=== PATIENT | male | born 1935 | race Caucasian/White ===

== ENCOUNTER 2021-06-03 18:38 | Inpatient (IN) | payer MEDICARE, OTHER ==
[2021-06-03] MEDS ORDERED: Acetaminophen/Codeine 30-300mg Tablet PO PRN (20:41)
[2021-06-03] MEDS ORDERED: Ondansetron ODT 4 MG TAB SL PRN (20:44)
[2021-06-03] MEDS ORDERED: Calcium Carbonate 500 MG ChewTAB PO PRN (20:44)
[2021-06-03] MEDS ORDERED: Guaifenesin DM 100-10/5 ML UDCUP PO PRN (20:44)
[2021-06-03] MEDS ORDERED: Senokot S 8.6-50 MG TAB PO PRN (20:44)
[2021-06-03] MEDS ORDERED: Artificial Tear Sol 15 ML BOT EA EYE PRN (20:44)
[2021-06-03] MEDS ORDERED: Cepastat Lozenges 1 LOZ PO PRN (20:44)
[2021-06-03] MEDS ORDERED: Acetaminophen 650 MG Suppository PR PRN (20:44)
[2021-06-03] MEDS ORDERED: Ondansetron PF 4 MG/2 ML Vial IVP PRN (20:44)
[2021-06-03] MEDS ORDERED: Bisacodyl 5 MG TAB PO PRN (20:44)
[2021-06-03] MEDS ORDERED: Loperamide HCl 2 MG CAP PO PRN ×2 (20:44)
[2021-06-03] MEDS ORDERED: Bisacodyl 10 MG SUPP PR PRN (20:44)
[2021-06-03] MEDS ORDERED: Eucerin (Mineral Oil/Petrolatum,White) 30 gm Jar TOP PRN (20:44)
[2021-06-03] MEDS ORDERED: Acetaminophen 325 MG TAB PO PRN (20:44)
[2021-06-03] MEDS: Finasteride 5 MG TAB PO SCH (21:55)
[2021-06-03] MEDS: Pramipexole Di-HCl 0.25 MG TAB PO SCH (21:55)
[2021-06-03] MEDS: Famotidine 20 MG TAB PO SCH (21:55)
[2021-06-03] MEDS: Atorvastatin Calcium 40 MG TAB PO SCH (21:55)
[2021-06-03] MEDS: Polyethylene Glycol 3350 17 GM Packet PO SCH (21:55)
[2021-06-03] MEDS: Piperacillin/Tazobactam 3.375 GM in Sodium Chloride 0.9% 100 ML IVPB SCH (21:56)
[2021-06-03] MEDS ORDERED: Piperacillin/Tazobactam 3.375 GM VIAL IVPB SCH (22:00)
[2021-06-04] MEDS: Piperacillin/Tazobactam 3.375 GM in Sodium Chloride 0.9% 100 ML IVPB SCH ×3 (05:18→21:57)
[2021-06-04 06:21] LABS: SARS-CoV-2 NAA Rapid Test Not Detected (NotDetected)
[2021-06-04] MEDS: Aspirin 81 mg Enteric Coated Tablet PO SCH (09:21)
[2021-06-04] MEDS: Carbidopa/Levodopa CR 50-200 mg Tablet PO SCH ×2 (09:21→14:28)
[2021-06-04] MEDS: Ferrous Sulfate 325 MG TAB PO SCH (09:22)
[2021-06-04] MEDS: CYANOCOBALAMIN 50 MCG PO SCH (09:22)
[2021-06-04] MEDS: [UNRECOGNIZED DRUG - OTHER] PO SCH (09:22)
[2021-06-04] MEDS: Famotidine 20 MG TAB PO SCH ×2 (09:22→21:57)
[2021-06-04] MEDS: Clopidogrel Bisulfate 75 MG TAB PO SCH (09:22)
[2021-06-04] MEDS: Vancomycin HCl 750 MG in Sodium Chloride 0.9% 250 ML 250 ML IVPB SCH (09:23)
[2021-06-04] MEDS: Vancomycin HCl 500 MG in Sodium Chloride 0.9% 100 ML IVPB SCH (09:23)
[2021-06-04] MEDS: Saccharomyces boulardii 250 MG CAP PO SCH (09:24)
[2021-06-04] MEDS: Pramipexole Di-HCl 0.25 MG TAB PO SCH ×2 (09:25→21:57)
[2021-06-04] MEDS: Polyethylene Glycol 3350 17 GM Packet PO SCH ×2 (09:29→21:59)
[2021-06-04] MEDS ORDERED: Sodium Chloride 0.9% 10 ML ONE (20:32)
[2021-06-04] MEDS: Atorvastatin Calcium 40 MG TAB PO SCH (21:57)
[2021-06-04] MEDS: Finasteride 5 MG TAB PO SCH (21:57)
[2021-06-05] MEDS ORDERED: Sodium Chloride 0.9% 10 ML ONE (05:23)
[2021-06-05] MEDS: Piperacillin/Tazobactam 3.375 GM in Sodium Chloride 0.9% 100 ML IVPB SCH ×3 (05:53→21:29)
[2021-06-05 08:11] LABS: Anion Gap 12 mmol/L (10-20); BUN (Urea Nitrogen) 10 mg/dL (8.4-25.7); Calc. Creatinine Clearance 84 mL/min (70-130); Carbon Dioxide 24 mmol/L (23-31); Chloride 104 mmol/L (98-107); Glucose 84 mg/dL (83-110); Potassium 3.7 mmol/L (3.5-5.1); Sodium 136 mmol/L (136-145)
[2021-06-05 08:28] LABS: #Basophils 0.1 thou/uL (0.0-0.2); #Eosinphils 0.2 thou/uL (0.0-0.7); #Neutrophils 9.5 thou/uL (1.40-6.50); %Basophils 0.7 % (0.0-1.0); %Eosinophils 1.5 % (0.0-10.0); %Lymphocytes 8.2 % (21.0-51.0); %Monocytes 8.4 % (0.0-10.0); %Neutrophils 81.2 % (42.0-75.0); Hemoglobin 8.6 g/dL (14.0-18.0); Mean Corpuscular HGB CONC 29.7 g/dL (32.0-36.0); Mean Corpuscular Hemoglobin 28.1 pg (27.0-31.0); Mean Corpuscular Volume 94.6 fL (78.0-98.0); Mean Platelet Volume 7.2 fL (7.4-10.4); Platelet Count 678 thou/uL (130-400); RBC Distribution Width 14.8 % (11.5-14.5); Red Blood Cell (RBC) Count 3.05 mill/uL (4.70-6.10); White Blood Cell (WBC) Count 11.7 thou/uL (4.8-10.8)
[2021-06-05] MEDS: Carbidopa/Levodopa CR 50-200 mg Tablet PO SCH ×2 (08:48→14:31)
[2021-06-05] MEDS: Pramipexole Di-HCl 0.25 MG TAB PO SCH ×2 (08:49→21:15)
[2021-06-05] MEDS: [UNRECOGNIZED DRUG - OTHER] PO SCH (08:49)
[2021-06-05] MEDS: Famotidine 20 MG TAB PO SCH ×2 (08:49→21:15)
[2021-06-05] MEDS: CYANOCOBALAMIN 50 MCG PO SCH (08:49)
[2021-06-05] MEDS: Saccharomyces boulardii 250 MG CAP PO SCH (08:49)
[2021-06-05] MEDS: Clopidogrel Bisulfate 75 MG TAB PO SCH (08:49)
[2021-06-05] MEDS: Aspirin 81 mg Enteric Coated Tablet PO SCH (08:49)
[2021-06-05] MEDS: Polyethylene Glycol 3350 17 GM Packet PO SCH ×2 (08:49→22:52)
[2021-06-05] MEDS: Vancomycin HCl 750 MG in Sodium Chloride 0.9% 250 ML 250 ML IVPB SCH (10:40)
[2021-06-05] MEDS: Vancomycin HCl 500 MG in Sodium Chloride 0.9% 100 ML IVPB SCH (10:40)
[2021-06-05] MEDS: Finasteride 5 MG TAB PO SCH (21:15)
[2021-06-05] MEDS: Atorvastatin Calcium 40 MG TAB PO SCH (21:15)
[2021-06-06] MEDS: Piperacillin/Tazobactam 3.375 GM in Sodium Chloride 0.9% 100 ML IVPB SCH ×3 (06:07→21:06)
[2021-06-06] MEDS: Vancomycin HCl 500 MG in Sodium Chloride 0.9% 100 ML IVPB SCH (09:48)
[2021-06-06] MEDS: Pramipexole Di-HCl 0.25 MG TAB PO SCH ×2 (09:49→20:18)
[2021-06-06] MEDS: Saccharomyces boulardii 250 MG CAP PO SCH (09:49)
[2021-06-06] MEDS: Vancomycin HCl 750 MG in Sodium Chloride 0.9% 250 ML 250 ML IVPB SCH (09:49)
[2021-06-06] MEDS: Famotidine 20 MG TAB PO SCH ×2 (09:50→20:19)
[2021-06-06] MEDS: Clopidogrel Bisulfate 75 MG TAB PO SCH (09:50)
[2021-06-06] MEDS: Ferrous Sulfate 325 MG TAB PO SCH (09:50)
[2021-06-06] MEDS: CYANOCOBALAMIN 50 MCG PO SCH (09:50)
[2021-06-06] MEDS: Polyethylene Glycol 3350 17 GM Packet PO SCH ×2 (09:50→20:18)
[2021-06-06] MEDS: [UNRECOGNIZED DRUG - OTHER] PO SCH (09:50)
[2021-06-06] MEDS: Aspirin 81 mg Enteric Coated Tablet PO SCH (09:50)
[2021-06-06] MEDS: Carbidopa/Levodopa CR 50-200 mg Tablet PO SCH ×2 (09:50→13:15)
[2021-06-06] MEDS: Atorvastatin Calcium 40 MG TAB PO SCH (20:19)
[2021-06-06] MEDS: Finasteride 5 MG TAB PO SCH (20:19)
[2021-06-07] MEDS ORDERED: Sodium Chloride 0.9% 10 ML ONE ×2 (05:48→10:15)
[2021-06-07] MEDS: Piperacillin/Tazobactam 3.375 GM in Sodium Chloride 0.9% 100 ML IVPB SCH ×3 (05:50→21:17)
[2021-06-07] MEDS ORDERED: Sodium Chloride 0.9% 250 ML 250 ML ONE (08:55)
[2021-06-07] MEDS: Pramipexole Di-HCl 0.25 MG TAB PO SCH ×2 (09:15→21:18)
[2021-06-07] MEDS: Saccharomyces boulardii 250 MG CAP PO SCH (09:15)
[2021-06-07] MEDS: Aspirin 81 mg Enteric Coated Tablet PO SCH (09:16)
[2021-06-07] MEDS: Vancomycin HCl 500 MG in Sodium Chloride 0.9% 100 ML IVPB SCH (09:16)
[2021-06-07] MEDS: Clopidogrel Bisulfate 75 MG TAB PO SCH (09:16)
[2021-06-07] MEDS: Carbidopa/Levodopa CR 50-200 mg Tablet PO SCH ×2 (09:16→13:35)
[2021-06-07] MEDS: Famotidine 20 MG TAB PO SCH ×2 (09:16→21:19)
[2021-06-07] MEDS: Vancomycin HCl 750 MG in Sodium Chloride 0.9% 250 ML 250 ML IVPB SCH (09:17)
[2021-06-07] MEDS: Polyethylene Glycol 3350 17 GM Packet PO SCH ×2 (09:19→21:19)
[2021-06-07] MEDS: CYANOCOBALAMIN 50 MCG PO SCH (09:20)
[2021-06-07] MEDS: [UNRECOGNIZED DRUG - OTHER] PO SCH (09:20)
[2021-06-07] MEDS ORDERED: Vancomycin HCl 500 MG in Sodium Chloride 0.9% 100 ML IVPB SCH (11:00)
[2021-06-07] MEDS ORDERED: Sodium Chloride 0.9% 20 ML ONE (20:31)
[2021-06-07] MEDS: Finasteride 5 MG TAB PO SCH (21:18)
[2021-06-07] MEDS: Atorvastatin Calcium 40 MG TAB PO SCH (21:18)
[2021-06-08] MEDS ORDERED: Sodium Chloride 0.9% 10 ML ONE ×2 (05:05→05:06)
[2021-06-08] MEDS: Piperacillin/Tazobactam 3.375 GM in Sodium Chloride 0.9% 100 ML IVPB SCH ×3 (05:11→20:42)
[2021-06-08 05:39] LABS: #Basophils 0.1 thou/uL (0.0-0.2); #Eosinphils 0.2 thou/uL (0.0-0.7); #Lymphocytes 1.1 thou/uL (1.20-3.40); #Monocytes 0.9 thou/uL (0.11-0.59); #Neutrophils 7.6 thou/uL (1.40-6.50); %Basophils 1.2 % (0.0-1.0); %Eosinophils 1.8 % (0.0-10.0); %Lymphocytes 10.5 % (21.0-51.0); %Monocytes 9.5 % (0.0-10.0); Hemoglobin 7.8 g/dL (14.0-18.0); Mean Corpuscular HGB CONC 29.9 g/dL (32.0-36.0); Mean Corpuscular Hemoglobin 28.2 pg (27.0-31.0); Mean Corpuscular Volume 94.4 fL (78.0-98.0); Platelet Count 654 thou/uL (130-400); RBC Distribution Width 15.2 % (11.5-14.5); Red Blood Cell (RBC) Count 2.77 mill/uL (4.70-6.10); White Blood Cell (WBC) Count 9.9 thou/uL (4.8-10.8)
[2021-06-08 05:50] LABS: Anion Gap 11 mmol/L (10-20); BUN (Urea Nitrogen) 8 mg/dL (8.4-25.7); Calc. Creatinine Clearance 94 mL/min (70-130); Calcium 8.2 mg/dL (7.8-10.44); Carbon Dioxide 26 mmol/L (23-31); Chloride 104 mmol/L (98-107); Glucose 98 mg/dL (83-110); Potassium 4.1 mmol/L (3.5-5.1); Sodium 137 mmol/L (136-145)
[2021-06-08] MEDS ORDERED: Sodium Chloride 0.9% 250 ML 250 ML ONE ×2 (08:32→08:33)
[2021-06-08] MEDS ORDERED: Sodium Chloride 0.9% 250 ML 0 ML ONE (08:32)
[2021-06-08] MEDS: Vancomycin HCl 1 GM in Sodium Chloride 0.9% 250 ML 250 ML IVPB SCH (08:38)
[2021-06-08] MEDS: Vancomycin HCl 750 MG in Sodium Chloride 0.9% 250 ML 250 ML IVPB SCH (08:38)
[2021-06-08] MEDS: Aspirin 81 mg Enteric Coated Tablet PO SCH (08:38)
[2021-06-08] MEDS: Carbidopa/Levodopa CR 50-200 mg Tablet PO SCH ×2 (08:39→13:56)
[2021-06-08] MEDS: Polyethylene Glycol 3350 17 GM Packet PO SCH ×2 (08:39→20:43)
[2021-06-08] MEDS: Famotidine 20 MG TAB PO SCH ×2 (08:39→20:42)
[2021-06-08] MEDS: Ferrous Sulfate 325 MG TAB PO SCH (08:39)
[2021-06-08] MEDS: Pramipexole Di-HCl 0.25 MG TAB PO SCH ×2 (08:39→20:42)
[2021-06-08] MEDS: Clopidogrel Bisulfate 75 MG TAB PO SCH (08:39)
[2021-06-08] MEDS: Saccharomyces boulardii 250 MG CAP PO SCH (08:39)
[2021-06-08] MEDS: CYANOCOBALAMIN 50 MCG PO SCH (08:40)
[2021-06-08] MEDS: [UNRECOGNIZED DRUG - OTHER] PO SCH (08:40)
[2021-06-08] MEDS ORDERED: Sodium Chloride 0.9% 20 ML ONE (20:15)
[2021-06-08] MEDS: Finasteride 5 MG TAB PO SCH (20:41)
[2021-06-08] MEDS: Atorvastatin Calcium 40 MG TAB PO SCH (20:42)
[2021-06-09] MEDS ORDERED: Sodium Chloride 0.9% 20 ML ONE (05:20)
[2021-06-09] MEDS: Piperacillin/Tazobactam 3.375 GM in Sodium Chloride 0.9% 100 ML IVPB SCH ×2 (05:35→15:52)
[2021-06-09 09:08] LABS: Vancomycin, Trough 19.3 ug/mL
[2021-06-09] MEDS: Saccharomyces boulardii 250 MG CAP PO SCH (09:55)
[2021-06-09] MEDS: Polyethylene Glycol 3350 17 GM Packet PO SCH ×2 (09:55→20:53)
[2021-06-09] MEDS: Aspirin 81 mg Enteric Coated Tablet PO SCH (09:55)
[2021-06-09] MEDS: Pramipexole Di-HCl 0.25 MG TAB PO SCH ×2 (09:55→20:51)
[2021-06-09] MEDS: Famotidine 20 MG TAB PO SCH ×2 (09:56→20:52)
[2021-06-09] MEDS: Clopidogrel Bisulfate 75 MG TAB PO SCH (09:56)
[2021-06-09] MEDS ORDERED: Vancomycin HCl 750 MG VIAL ONE (10:03)
[2021-06-09] MEDS ORDERED: Sodium Chloride 0.9% 250 ML 500 ML ONE (10:03)
[2021-06-09] MEDS: Vancomycin HCl 1 GM in Sodium Chloride 0.9% 250 ML 250 ML IVPB SCH (10:04)
[2021-06-09] MEDS: Vancomycin HCl 750 MG in Sodium Chloride 0.9% 250 ML 250 ML IVPB SCH (10:05)
[2021-06-09] MEDS: Carbidopa/Levodopa CR 50-200 mg Tablet PO SCH ×2 (10:07→15:52)
[2021-06-09] MEDS: [UNRECOGNIZED DRUG - OTHER] PO SCH (10:30)
[2021-06-09] MEDS: CYANOCOBALAMIN 50 MCG PO SCH (10:30)
[2021-06-09] MEDS ORDERED: metroNIDAZOLE 500 MG TAB PO SCH (16:15)
[2021-06-09] MEDS: Carbidopa/Levodopa 25-100 mg Tablet PO SCH ×2 (16:57→20:52)
[2021-06-09] MEDS ORDERED: Carbidopa/Levodopa 25-100 mg Tablet PO SCH (17:00)
[2021-06-09] MEDS: Atorvastatin Calcium 40 MG TAB PO SCH (20:51)
[2021-06-09] MEDS: Finasteride 5 MG TAB PO SCH (20:52)
[2021-06-09] MEDS: metroNIDAZOLE 500 MG TAB PO SCH (20:52)
[2021-06-09] MEDS: Pantoprazole 40 MG GRANULES PACKET PO SCH (20:52)
[2021-06-10] MEDS: Pramipexole Di-HCl 0.25 MG TAB PO SCH ×2 (10:14→20:04)
[2021-06-10] MEDS: Carbidopa/Levodopa 25-100 mg Tablet PO SCH ×4 (10:14→20:04)
[2021-06-10] MEDS: Saccharomyces boulardii 250 MG CAP PO SCH (10:14)
[2021-06-10] MEDS: metroNIDAZOLE 500 MG TAB PO SCH ×3 (10:15→20:05)
[2021-06-10] MEDS: Aspirin Chewable 81 MG TAB PO SCH (10:15)
[2021-06-10] MEDS: Famotidine 20 MG TAB PO SCH ×2 (10:15→20:05)
[2021-06-10] MEDS: Ferrous Sulfate 325 MG TAB PO SCH (10:15)
[2021-06-10] MEDS: Clopidogrel Bisulfate 75 MG TAB PO SCH (10:15)
[2021-06-10] MEDS: Acetaminophen 325 MG TAB PO PRN (10:16)
[2021-06-10] MEDS: Pantoprazole 40 MG GRANULES PACKET PO SCH ×2 (10:17→20:05)
[2021-06-10] MEDS: [UNRECOGNIZED DRUG - OTHER] PO SCH (10:17)
[2021-06-10] MEDS: Polyethylene Glycol 3350 17 GM Packet PO SCH ×2 (10:18→20:05)
[2021-06-10] MEDS: CYANOCOBALAMIN 50 MCG PO SCH (10:18)
[2021-06-10] MEDS: Finasteride 5 MG TAB PO SCH (20:05)
[2021-06-10] MEDS: Atorvastatin Calcium 40 MG TAB PO SCH (20:05)
[2021-06-11] MEDS: Pramipexole Di-HCl 0.25 MG TAB PO SCH ×2 (08:34→21:15)
[2021-06-11] MEDS: Aspirin Chewable 81 MG TAB PO SCH (08:34)
[2021-06-11] MEDS: [UNRECOGNIZED DRUG - OTHER] PO SCH (08:37)
[2021-06-11] MEDS: Pantoprazole 40 MG GRANULES PACKET PO SCH ×2 (08:37→21:15)
[2021-06-11] MEDS: Clopidogrel Bisulfate 75 MG TAB PO SCH (08:37)
[2021-06-11] MEDS: Furosemide 20 MG TAB PO SCH ×2 (08:37→14:33)
[2021-06-11] MEDS: CYANOCOBALAMIN 50 MCG PO SCH (08:38)
[2021-06-11] MEDS: Carbidopa/Levodopa 25-100 mg Tablet PO SCH ×4 (08:38→21:15)
[2021-06-11] MEDS: Saccharomyces boulardii 250 MG CAP PO SCH (08:38)
[2021-06-11] MEDS: Polyethylene Glycol 3350 17 GM Packet PO SCH ×2 (08:38→21:15)
[2021-06-11] MEDS: metroNIDAZOLE 500 MG TAB PO SCH ×3 (08:38→21:15)
[2021-06-11] MEDS: Famotidine 20 MG TAB PO SCH ×2 (08:38→21:15)
[2021-06-11] MEDS: Acetaminophen 325 MG TAB PO PRN (08:40)
[2021-06-11] MEDS: Atorvastatin Calcium 40 MG TAB PO SCH (21:15)
[2021-06-11] MEDS: Finasteride 5 MG TAB PO SCH (21:15)
[2021-06-11 23:30] LABS: SARS-CoV-2 PCR by NAA Not Detected (NotDetected)
[2021-06-12] MEDS: Pantoprazole 40 MG GRANULES PACKET PO SCH ×2 (08:39→21:32)
[2021-06-12] MEDS: Clopidogrel Bisulfate 75 MG TAB PO SCH (08:39)
[2021-06-12] MEDS: Pramipexole Di-HCl 0.25 MG TAB PO SCH ×2 (08:39→21:26)
[2021-06-12] MEDS: Carbidopa/Levodopa 25-100 mg Tablet PO SCH ×4 (08:40→21:28)
[2021-06-12] MEDS: Aspirin Chewable 81 MG TAB PO SCH (08:40)
[2021-06-12] MEDS: Famotidine 20 MG TAB PO SCH ×2 (08:40→21:26)
[2021-06-12] MEDS: Ferrous Sulfate 325 MG TAB PO SCH (08:40)
[2021-06-12] MEDS: Furosemide 20 MG TAB PO SCH ×2 (08:40→13:40)
[2021-06-12] MEDS: metroNIDAZOLE 500 MG TAB PO SCH ×3 (08:40→21:26)
[2021-06-12] MEDS: CYANOCOBALAMIN 50 MCG PO SCH (08:41)
[2021-06-12] MEDS: [UNRECOGNIZED DRUG - OTHER] PO SCH (08:41)
[2021-06-12] MEDS: Polyethylene Glycol 3350 17 GM Packet PO SCH ×2 (08:42→21:25)
[2021-06-12] MEDS: Saccharomyces boulardii 250 MG CAP PO SCH (09:30)
[2021-06-12] MEDS: Atorvastatin Calcium 40 MG TAB PO SCH (21:28)
[2021-06-12] MEDS: Finasteride 5 MG TAB PO SCH (21:28)
[2021-06-12] MEDS: Acetaminophen 325 MG TAB PO PRN (21:28)
[2021-06-13] MEDS: Saccharomyces boulardii 250 MG CAP PO SCH (08:51)
[2021-06-13] MEDS: Polyethylene Glycol 3350 17 GM Packet PO SCH ×2 (08:51→21:17)
[2021-06-13] MEDS: Carbidopa/Levodopa 25-100 mg Tablet PO SCH ×4 (08:51→21:27)
[2021-06-13] MEDS: Clopidogrel Bisulfate 75 MG TAB PO SCH (08:51)
[2021-06-13] MEDS: Pramipexole Di-HCl 0.25 MG TAB PO SCH ×2 (08:51→21:18)
[2021-06-13] MEDS: Famotidine 20 MG TAB PO SCH ×2 (08:51→21:25)
[2021-06-13] MEDS: metroNIDAZOLE 500 MG TAB PO SCH ×3 (08:51→21:18)
[2021-06-13] MEDS: Pantoprazole 40 MG GRANULES PACKET PO SCH ×2 (08:51→21:18)
[2021-06-13] MEDS: [UNRECOGNIZED DRUG - OTHER] PO SCH (08:52)
[2021-06-13] MEDS: Aspirin Chewable 81 MG TAB PO SCH (08:52)
[2021-06-13] MEDS: Furosemide 20 MG TAB PO SCH ×2 (08:52→14:39)
[2021-06-13] MEDS: CYANOCOBALAMIN 50 MCG PO SCH (08:53)
[2021-06-13] MEDS: Finasteride 5 MG TAB PO SCH (21:18)
[2021-06-13] MEDS: Atorvastatin Calcium 40 MG TAB PO SCH (21:18)
[2021-06-14] MEDS: Acetaminophen 325 MG TAB PO PRN ×4 (00:15→21:11)
[2021-06-14] MEDS: Carbidopa/Levodopa 25-100 mg Tablet PO SCH ×4 (09:10→21:10)
[2021-06-14] MEDS: Pantoprazole 40 MG GRANULES PACKET PO SCH ×2 (09:11→21:10)
[2021-06-14] MEDS: Saccharomyces boulardii 250 MG CAP PO SCH (09:11)
[2021-06-14] MEDS: Ferrous Sulfate 325 MG TAB PO SCH (09:13)
[2021-06-14] MEDS: Furosemide 20 MG TAB PO SCH ×2 (09:13→14:02)
[2021-06-14] MEDS: Aspirin Chewable 81 MG TAB PO SCH (09:14)
[2021-06-14] MEDS: [UNRECOGNIZED DRUG - OTHER] PO SCH (09:14)
[2021-06-14] MEDS: Famotidine 20 MG TAB PO SCH ×2 (09:14→21:10)
[2021-06-14] MEDS: metroNIDAZOLE 500 MG TAB PO SCH ×3 (09:15→21:13)
[2021-06-14] MEDS: Clopidogrel Bisulfate 75 MG TAB PO SCH (09:15)
[2021-06-14] MEDS: Pramipexole Di-HCl 0.25 MG TAB PO SCH ×2 (09:16→21:12)
[2021-06-14] MEDS: Polyethylene Glycol 3350 17 GM Packet PO SCH ×2 (09:17→21:13)
[2021-06-14] MEDS: CYANOCOBALAMIN 50 MCG PO SCH (09:19)
[2021-06-14] MEDS: Finasteride 5 MG TAB PO SCH (21:12)
[2021-06-14] MEDS: Atorvastatin Calcium 40 MG TAB PO SCH (21:13)
[2021-06-15] MEDS: Pramipexole Di-HCl 0.25 MG TAB PO SCH ×2 (09:50→21:35)
[2021-06-15] MEDS: Clopidogrel Bisulfate 75 MG TAB PO SCH (09:50)
[2021-06-15] MEDS: Saccharomyces boulardii 250 MG CAP PO SCH (09:50)
[2021-06-15] MEDS: Furosemide 20 MG TAB PO SCH ×2 (09:50→16:08)
[2021-06-15] MEDS: metroNIDAZOLE 500 MG TAB PO SCH ×3 (09:50→21:35)
[2021-06-15] MEDS: Polyethylene Glycol 3350 17 GM Packet PO SCH ×2 (09:50→22:16)
[2021-06-15] MEDS: Pantoprazole 40 MG GRANULES PACKET PO SCH ×2 (09:50→21:36)
[2021-06-15] MEDS: Carbidopa/Levodopa 25-100 mg Tablet PO SCH ×4 (09:50→21:35)
[2021-06-15] MEDS: Aspirin Chewable 81 MG TAB PO SCH (09:50)
[2021-06-15] MEDS: [UNRECOGNIZED DRUG - OTHER] PO SCH (09:51)
[2021-06-15] MEDS: CYANOCOBALAMIN 50 MCG PO SCH (09:51)
[2021-06-15] MEDS: Famotidine 20 MG TAB PO SCH ×2 (10:49→21:36)
[2021-06-15] MEDS: Furosemide 40 MG TAB PO SCH (15:00)
[2021-06-15] MEDS: Atorvastatin Calcium 40 MG TAB PO SCH (21:35)
[2021-06-15] MEDS: Finasteride 5 MG TAB PO SCH (21:35)
[2021-06-15] MEDS: Acetaminophen 325 MG TAB PO PRN (22:16)
[2021-06-16] MEDS: Acetaminophen 325 MG TAB PO PRN ×3 (03:24→21:31)
[2021-06-16] MEDS: Polyethylene Glycol 3350 17 GM Packet PO SCH ×2 (08:19→21:29)
[2021-06-16] MEDS: Pantoprazole 40 MG GRANULES PACKET PO SCH ×2 (08:19→21:31)
[2021-06-16] MEDS: Pramipexole Di-HCl 0.25 MG TAB PO SCH ×2 (08:20→21:30)
[2021-06-16] MEDS: Aspirin Chewable 81 MG TAB PO SCH (08:20)
[2021-06-16] MEDS: Furosemide 40 MG TAB PO SCH ×2 (08:20→14:43)
[2021-06-16] MEDS: metroNIDAZOLE 500 MG TAB PO SCH ×3 (08:20→21:31)
[2021-06-16] MEDS: Ferrous Sulfate 325 MG TAB PO SCH (08:21)
[2021-06-16] MEDS: Carbidopa/Levodopa 25-100 mg Tablet PO SCH ×4 (08:21→21:30)
[2021-06-16] MEDS: Famotidine 20 MG TAB PO SCH ×2 (08:22→21:31)
[2021-06-16] MEDS: [UNRECOGNIZED DRUG - OTHER] PO SCH (08:22)
[2021-06-16] MEDS: CYANOCOBALAMIN 50 MCG PO SCH (08:22)
[2021-06-16] MEDS: Clopidogrel Bisulfate 75 MG TAB PO SCH (08:22)
[2021-06-16] MEDS: Saccharomyces boulardii 250 MG CAP PO SCH (08:22)
[2021-06-16] MEDS: Finasteride 5 MG TAB PO SCH (21:30)
[2021-06-16] MEDS: Atorvastatin Calcium 40 MG TAB PO SCH (21:30)
[2021-06-16] MEDS: Escitalopram Oxalate 10 mg Tablet PO SCH (21:31)
[2021-06-16] MEDS ORDERED: Famotidine 20 MG TAB ONE (22:01)
[2021-06-17 06:31] LABS: #Basophils 0.1 thou/uL (0.0-0.2); #Eosinphils 0.2 thou/uL (0.0-0.7); #Lymphocytes 1.2 thou/uL (1.20-3.40); #Neutrophils 5.2 thou/uL (1.40-6.50); %Basophils 0.8 % (0.0-1.0); %Eosinophils 2.7 % (0.0-10.0); %Lymphocytes 15.9 % (21.0-51.0); %Monocytes 12.8 % (0.0-10.0); %Neutrophils 67.8 % (42.0-75.0); Hemoglobin 8.5 g/dL (14.0-18.0); Mean Corpuscular HGB CONC 29.8 g/dL (32.0-36.0); Mean Platelet Volume 8.3 fL (7.4-10.4); Platelet Count 308 thou/uL (130-400); RBC Distribution Width 15.4 % (11.5-14.5); Red Blood Cell (RBC) Count 3.02 mill/uL (4.70-6.10); White Blood Cell (WBC) Count 7.6 thou/uL (4.8-10.8)
[2021-06-17 06:47] LABS: Anion Gap 12 mmol/L (10-20); BUN (Urea Nitrogen) 14 mg/dL (8.4-25.7); Calc. Creatinine Clearance 81 mL/min (70-130); Calcium 8.6 mg/dL (7.8-10.44); Carbon Dioxide 32 mmol/L (23-31); Chloride 92 mmol/L (98-107); Glucose 100 mg/dL (83-110); Potassium 3.6 mmol/L (3.5-5.1); Sodium 132 mmol/L (136-145)
[2021-06-17] MEDS: metroNIDAZOLE 500 MG TAB PO SCH ×3 (10:15→21:09)
[2021-06-17] MEDS: Aspirin Chewable 81 MG TAB PO SCH (10:16)
[2021-06-17] MEDS: Pramipexole Di-HCl 0.25 MG TAB PO SCH ×2 (10:17→21:09)
[2021-06-17] MEDS: Furosemide 40 MG TAB PO SCH ×2 (11:18→14:31)
[2021-06-17] MEDS: Saccharomyces boulardii 250 MG CAP PO SCH (11:19)
[2021-06-17] MEDS: [UNRECOGNIZED DRUG - OTHER] PO SCH (11:19)
[2021-06-17] MEDS: CYANOCOBALAMIN 50 MCG PO SCH (11:19)
[2021-06-17] MEDS: Clopidogrel Bisulfate 75 MG TAB PO SCH (11:25)
[2021-06-17] MEDS: Carbidopa/Levodopa 25-100 mg Tablet PO SCH ×4 (11:26→21:13)
[2021-06-17] MEDS: Pantoprazole 40 MG GRANULES PACKET PO SCH ×2 (11:27→21:14)
[2021-06-17] MEDS: Polyethylene Glycol 3350 17 GM Packet PO SCH ×2 (11:27→21:08)
[2021-06-17] MEDS: Famotidine 20 MG TAB PO SCH ×2 (11:28→21:10)
[2021-06-17] MEDS: Finasteride 5 MG TAB PO SCH (21:09)
[2021-06-17] MEDS: Escitalopram Oxalate 10 mg Tablet PO SCH (21:13)
[2021-06-17] MEDS: Atorvastatin Calcium 40 MG TAB PO SCH (21:14)
[2021-06-18] MEDS: Acetaminophen 325 MG TAB PO PRN ×3 (07:49→18:12)
[2021-06-18] MEDS: Pramipexole Di-HCl 0.25 MG TAB PO SCH ×2 (07:50→21:04)
[2021-06-18] MEDS: Polyethylene Glycol 3350 17 GM Packet PO SCH ×2 (07:50→21:01)
[2021-06-18] MEDS: Pantoprazole 40 MG GRANULES PACKET PO SCH ×2 (07:50→21:05)
[2021-06-18] MEDS: metroNIDAZOLE 500 MG TAB PO SCH ×3 (07:50→21:09)
[2021-06-18] MEDS: Saccharomyces boulardii 250 MG CAP PO SCH (07:50)
[2021-06-18] MEDS: Clopidogrel Bisulfate 75 MG TAB PO SCH (07:52)
[2021-06-18] MEDS: Famotidine 20 MG TAB PO SCH ×2 (07:52→21:06)
[2021-06-18] MEDS: Aspirin Chewable 81 MG TAB PO SCH (07:52)
[2021-06-18] MEDS: Furosemide 40 MG TAB PO SCH ×2 (07:52→13:29)
[2021-06-18] MEDS: Ferrous Sulfate 325 MG TAB PO SCH (07:53)
[2021-06-18] MEDS: Carbidopa/Levodopa 25-100 mg Tablet PO SCH ×4 (07:53→21:03)
[2021-06-18] MEDS: [UNRECOGNIZED DRUG - OTHER] PO SCH (07:53)
[2021-06-18] MEDS: CYANOCOBALAMIN 50 MCG PO SCH (07:54)
[2021-06-18] MEDS: Finasteride 5 MG TAB PO SCH (21:04)
[2021-06-18] MEDS: Atorvastatin Calcium 40 MG TAB PO SCH (21:04)
[2021-06-18] MEDS: Escitalopram Oxalate 10 mg Tablet PO SCH (21:05)
[2021-06-19] MEDS: metroNIDAZOLE 500 MG TAB PO SCH ×2 (09:42→21:04)
[2021-06-19] MEDS: Polyethylene Glycol 3350 17 GM Packet PO SCH ×2 (09:42→21:05)
[2021-06-19] MEDS: Acetaminophen 325 MG TAB PO PRN ×2 (09:42→21:09)
[2021-06-19] MEDS: Saccharomyces boulardii 250 MG CAP PO SCH (09:43)
[2021-06-19] MEDS: Pantoprazole 40 MG GRANULES PACKET PO SCH ×2 (09:43→21:02)
[2021-06-19] MEDS: Pramipexole Di-HCl 0.25 MG TAB PO SCH ×2 (09:43→21:05)
[2021-06-19] MEDS: Clopidogrel Bisulfate 75 MG TAB PO SCH (09:43)
[2021-06-19] MEDS: Furosemide 40 MG TAB PO SCH (09:43)
[2021-06-19] MEDS: Aspirin Chewable 81 MG TAB PO SCH (09:43)
[2021-06-19] MEDS: Carbidopa/Levodopa 25-100 mg Tablet PO SCH ×3 (09:43→21:04)
[2021-06-19] MEDS: [UNRECOGNIZED DRUG - OTHER] PO SCH (09:44)
[2021-06-19] MEDS: Famotidine 20 MG TAB PO SCH ×2 (09:44→21:04)
[2021-06-19] MEDS: CYANOCOBALAMIN 50 MCG PO SCH (09:44)
[2021-06-19] MEDS: Escitalopram Oxalate 10 mg Tablet PO SCH (21:02)
[2021-06-19] MEDS: Finasteride 5 MG TAB PO SCH (21:04)
[2021-06-19] MEDS: Atorvastatin Calcium 40 MG TAB PO SCH (21:09)
[2021-06-20] MEDS: Clopidogrel Bisulfate 75 MG TAB PO SCH (08:12)
[2021-06-20] MEDS: Polyethylene Glycol 3350 17 GM Packet PO SCH ×2 (08:12→20:22)
[2021-06-20] MEDS: Pramipexole Di-HCl 0.25 MG TAB PO SCH ×2 (08:12→20:22)
[2021-06-20] MEDS: Acetaminophen/Codeine 30-300mg Tablet PO PRN ×2 (08:12→17:17)
[2021-06-20] MEDS: Aspirin Chewable 81 MG TAB PO SCH (08:12)
[2021-06-20] MEDS: Carbidopa/Levodopa 25-100 mg Tablet PO SCH ×5 (08:12→20:22)
[2021-06-20] MEDS: Saccharomyces boulardii 250 MG CAP PO SCH (08:13)
[2021-06-20] MEDS: Pantoprazole 40 MG GRANULES PACKET PO SCH ×2 (08:13→20:21)
[2021-06-20] MEDS: Famotidine 20 MG TAB PO SCH ×2 (08:14→20:22)
[2021-06-20] MEDS: CYANOCOBALAMIN 50 MCG PO SCH (08:14)
[2021-06-20] MEDS: Furosemide 40 MG TAB PO SCH ×3 (08:14→14:21)
[2021-06-20] MEDS: Ferrous Sulfate 325 MG TAB PO SCH (08:14)
[2021-06-20] MEDS: [UNRECOGNIZED DRUG - OTHER] PO SCH (08:15)
[2021-06-20] MEDS: metroNIDAZOLE 500 MG TAB PO SCH (08:16)
[2021-06-20 13:29] LABS: SARS-CoV-2 PCR by NAA Not Detected (NotDetected)
[2021-06-20] MEDS: Finasteride 5 MG TAB PO SCH (20:22)
[2021-06-20] MEDS: Escitalopram Oxalate 10 mg Tablet PO SCH (20:22)
[2021-06-20] MEDS: Atorvastatin Calcium 40 MG TAB PO SCH (20:22)
[2021-06-21] MEDS: Clopidogrel Bisulfate 75 MG TAB PO SCH (09:16)
[2021-06-21] MEDS: Saccharomyces boulardii 250 MG CAP PO SCH (09:16)
[2021-06-21] MEDS: Polyethylene Glycol 3350 17 GM Packet PO SCH ×2 (09:16→20:27)
[2021-06-21] MEDS: Famotidine 20 MG TAB PO SCH ×2 (09:16→20:27)
[2021-06-21] MEDS: Furosemide 40 MG TAB PO SCH ×2 (09:16→14:03)
[2021-06-21] MEDS: Pantoprazole 40 MG GRANULES PACKET PO SCH ×2 (09:16→20:26)
[2021-06-21] MEDS: Pramipexole Di-HCl 0.25 MG TAB PO SCH ×2 (09:16→20:27)
[2021-06-21] MEDS: Carbidopa/Levodopa 25-100 mg Tablet PO SCH ×4 (09:16→20:26)
[2021-06-21] MEDS: CYANOCOBALAMIN 50 MCG PO SCH (09:17)
[2021-06-21] MEDS: Aspirin Chewable 81 MG TAB PO SCH (09:17)
[2021-06-21] MEDS: Acetaminophen/Codeine 30-300mg Tablet PO PRN (09:17)
[2021-06-21] MEDS: [UNRECOGNIZED DRUG - OTHER] PO SCH (09:17)
[2021-06-21] MEDS: Finasteride 5 MG TAB PO SCH (20:26)
[2021-06-21] MEDS: Atorvastatin Calcium 40 MG TAB PO SCH (20:26)
[2021-06-21] MEDS: Escitalopram Oxalate 10 mg Tablet PO SCH (20:27)
[2021-06-22 06:06] LABS: Anion Gap 13 mmol/L (10-20); BUN (Urea Nitrogen) 11 mg/dL (8.4-25.7); Calc. Creatinine Clearance 82 mL/min (70-130); Calcium 8.4 mg/dL (7.8-10.44); Carbon Dioxide 28 mmol/L (23-31); Chloride 92 mmol/L (98-107); Glucose 92 mg/dL (83-110); Potassium 3.7 mmol/L (3.5-5.1); Sodium 129 mmol/L (136-145)
[2021-06-22 06:26] LABS: #Basophils 0.1 thou/uL (0.0-0.2); #Eosinphils 0.1 thou/uL (0.0-0.7); #Lymphocytes 1.3 thou/uL (1.20-3.40); #Monocytes 1.1 thou/uL (0.11-0.59); #Neutrophils 6.9 thou/uL (1.40-6.50); %Eosinophils 1.1 % (0.0-10.0); %Lymphocytes 13.4 % (21.0-51.0); %Monocytes 11.9 % (0.0-10.0); %Neutrophils 72.6 % (42.0-75.0); Mean Corpuscular HGB CONC 30.3 g/dL (32.0-36.0); Mean Corpuscular Hemoglobin 28.5 pg (27.0-31.0); Mean Corpuscular Volume 94.2 fL (78.0-98.0); Mean Platelet Volume 7.9 fL (7.4-10.4); Platelet Count 326 thou/uL (130-400); RBC Distribution Width 15.5 % (11.5-14.5); Red Blood Cell (RBC) Count 3.16 mill/uL (4.70-6.10); White Blood Cell (WBC) Count 9.5 thou/uL (4.8-10.8)
[2021-06-22] MEDS: Aspirin Chewable 81 MG TAB PO SCH (08:54)
[2021-06-22] MEDS: Clopidogrel Bisulfate 75 MG TAB PO SCH (08:54)
[2021-06-22] MEDS: Carbidopa/Levodopa 25-100 mg Tablet PO SCH ×4 (08:54→20:25)
[2021-06-22] MEDS: [UNRECOGNIZED DRUG - OTHER] PO SCH (08:54)
[2021-06-22] MEDS: Pramipexole Di-HCl 0.25 MG TAB PO SCH ×2 (08:55→20:25)
[2021-06-22] MEDS: Famotidine 20 MG TAB PO SCH ×2 (08:55→20:26)
[2021-06-22] MEDS: Pantoprazole 40 MG GRANULES PACKET PO SCH ×2 (08:55→20:25)
[2021-06-22] MEDS: Polyethylene Glycol 3350 17 GM Packet PO SCH ×2 (08:55→20:27)
[2021-06-22] MEDS: Furosemide 40 MG TAB PO SCH (08:55)
[2021-06-22] MEDS: CYANOCOBALAMIN 50 MCG PO SCH (08:55)
[2021-06-22] MEDS: Ferrous Sulfate 325 MG TAB PO SCH (08:55)
[2021-06-22] MEDS: Saccharomyces boulardii 250 MG CAP PO SCH (08:56)
[2021-06-22] MEDS: Atorvastatin Calcium 40 MG TAB PO SCH (20:25)
[2021-06-22] MEDS: Escitalopram Oxalate 10 mg Tablet PO SCH (20:26)
[2021-06-22] MEDS: Finasteride 5 MG TAB PO SCH (20:26)
[2021-06-23 06:30] LABS: Anion Gap 12 mmol/L (10-20); BUN (Urea Nitrogen) 12 mg/dL (8.4-25.7); Calc. Creatinine Clearance 82 mL/min (70-130); Calcium 8.8 mg/dL (7.8-10.44); Carbon Dioxide 32 mmol/L (23-31); Chloride 90 mmol/L (98-107); Glucose 108 mg/dL (83-110); Potassium 3.7 mmol/L (3.5-5.1); Sodium 130 mmol/L (136-145)
[2021-06-23] MEDS: [UNRECOGNIZED DRUG - OTHER] PO SCH (08:31)
[2021-06-23] MEDS: Furosemide 40 MG TAB PO SCH (08:31)
[2021-06-23] MEDS: Aspirin Chewable 81 MG TAB PO SCH (08:31)
[2021-06-23] MEDS: Carbidopa/Levodopa 25-100 mg Tablet PO SCH ×4 (08:31→20:34)
[2021-06-23] MEDS: Clopidogrel Bisulfate 75 MG TAB PO SCH (08:31)
[2021-06-23] MEDS: Pramipexole Di-HCl 0.25 MG TAB PO SCH ×2 (08:32→20:34)
[2021-06-23] MEDS: Famotidine 20 MG TAB PO SCH ×2 (08:32→20:35)
[2021-06-23] MEDS: Pantoprazole 40 MG GRANULES PACKET PO SCH ×2 (08:32→20:34)
[2021-06-23] MEDS: Polyethylene Glycol 3350 17 GM Packet PO SCH ×2 (08:32→20:34)
[2021-06-23] MEDS: Saccharomyces boulardii 250 MG CAP PO SCH (08:33)
[2021-06-23] MEDS: Acetaminophen/Codeine 30-300mg Tablet PO PRN (09:25)
[2021-06-23] MEDS: CYANOCOBALAMIN 50 MCG PO SCH (09:29)
[2021-06-23] MEDS: Atorvastatin Calcium 40 MG TAB PO SCH (20:34)
[2021-06-23] MEDS: Finasteride 5 MG TAB PO SCH (20:35)
[2021-06-23 23:01] LABS: Bilirubin Negative (Negative); Blood, Urine Trace (Negative); Clarity Clear (Clear); Glucose, Urine (Dipstick) Negative (Negative); Ketone, Urine Trace mg/dL (Negative); Leukocyte Negative (Negative); Nitrite Negative (Negative); Protein, Urine (Dipstick) Trace mg/dL (Neg-Trace); Urobilinogen 0.2 mg/dL (Less than 2)
[2021-06-23 23:08] LABS: RBC/HPF 0-3 HPF (0-3); Squamous Epithelial None Seen HPF (0-3); WBC/HPF 0-3 HPF (0-3)
[2021-06-23 23:09] LABS: Bacteria/HPF None Seen HPF (None Seen); Yeast-Budding 1+ HPF (None Seen); Yeast-Hyphae 1+ HPF (None Seen)
[2021-06-24] MEDS ORDERED: Iopamidol 370 76% 100 ML VIAL ONE (09:00)
[2021-06-24] MEDS: Pramipexole Di-HCl 0.25 MG TAB PO SCH ×2 (09:11→20:21)
[2021-06-24] MEDS: Polyethylene Glycol 3350 17 GM Packet PO SCH ×2 (09:11→20:22)
[2021-06-24] MEDS: Furosemide 40 MG TAB PO SCH (09:11)
[2021-06-24] MEDS: Clopidogrel Bisulfate 75 MG TAB PO SCH (09:12)
[2021-06-24] MEDS: Pantoprazole 40 MG GRANULES PACKET PO SCH ×2 (09:12→20:22)
[2021-06-24] MEDS: Famotidine 20 MG TAB PO SCH ×2 (09:12→20:21)
[2021-06-24] MEDS: Saccharomyces boulardii 250 MG CAP PO SCH (09:12)
[2021-06-24] MEDS: Aspirin Chewable 81 MG TAB PO SCH (09:12)
[2021-06-24] MEDS: Carbidopa/Levodopa 25-100 mg Tablet PO SCH ×4 (09:12→20:20)
[2021-06-24] MEDS: Ferrous Sulfate 325 MG TAB PO SCH (09:12)
[2021-06-24] MEDS: CYANOCOBALAMIN 50 MCG PO SCH (09:13)
[2021-06-24] MEDS: [UNRECOGNIZED DRUG - OTHER] PO SCH (09:13)
[2021-06-24] MEDS ORDERED: Albuterol Sulfate 2.5 mg/3 ml Neb NEB PRN (10:07)
[2021-06-24] MEDS ORDERED: Albuterol Sulfate 2.5 mg/3 ml Neb ONE (10:10)
[2021-06-24 11:21] LABS: #Lymphocytes 1.2 thou/uL (1.20-3.40); #Monocytes 1.4 thou/uL (0.11-0.59); %Basophils 0.4 % (0.0-1.0); %Eosinophils 0.2 % (0.0-10.0); %Lymphocytes 11.2 % (21.0-51.0); %Monocytes 12.8 % (0.0-10.0); %Neutrophils 75.4 % (42.0-75.0); Hemoglobin 8.5 g/dL (14.0-18.0); Mean Corpuscular HGB CONC 31.4 g/dL (32.0-36.0); Mean Corpuscular Hemoglobin 29.2 pg (27.0-31.0); Mean Platelet Volume 7.8 fL (7.4-10.4); Platelet Count 284 thou/uL (130-400); RBC Distribution Width 15.5 % (11.5-14.5); White Blood Cell (WBC) Count 10.6 thou/uL (4.8-10.8)
[2021-06-24] MEDS ORDERED: Piperacillin/Tazobactam 3.375 GM in Sodium Chloride 0.9% 100 ML IVPB SCH ×2 (17:00→21:00)
[2021-06-24] MEDS: Atorvastatin Calcium 40 MG TAB PO SCH (20:21)
[2021-06-24] MEDS: Finasteride 5 MG TAB PO SCH (20:21)
[2021-06-25 06:37] LABS: #Basophils 0.1 thou/uL (0.0-0.2); #Eosinphils 0.1 thou/uL (0.0-0.7); #Lymphocytes 0.9 thou/uL (1.20-3.40); #Monocytes 1.2 thou/uL (0.11-0.59); #Neutrophils 5.7 thou/uL (1.40-6.50); %Basophils 0.8 % (0.0-1.0); %Eosinophils 1.2 % (0.0-10.0); %Lymphocytes 11.7 % (21.0-51.0); %Monocytes 14.8 % (0.0-10.0); %Neutrophils 71.6 % (42.0-75.0); Hemoglobin 8.4 g/dL (14.0-18.0); Mean Corpuscular HGB CONC 30.3 g/dL (32.0-36.0); Mean Corpuscular Hemoglobin 28.8 pg (27.0-31.0); Mean Corpuscular Volume 95.2 fL (78.0-98.0); Mean Platelet Volume 7.8 fL (7.4-10.4); Platelet Count 317 thou/uL (130-400); RBC Distribution Width 15.9 % (11.5-14.5); Red Blood Cell (RBC) Count 2.91 mill/uL (4.70-6.10)
[2021-06-25 06:44] LABS: Anion Gap 12 mmol/L (10-20); BUN (Urea Nitrogen) 9 mg/dL (8.4-25.7); Calc. Creatinine Clearance 87 mL/min (70-130); Calcium 8.9 mg/dL (7.8-10.44); Carbon Dioxide 34 mmol/L (23-31); Chloride 91 mmol/L (98-107); Glucose 82 mg/dL (83-110); Potassium 3.7 mmol/L (3.5-5.1); Sodium 133 mmol/L (136-145)
[2021-06-25] MEDS: Saccharomyces boulardii 250 MG CAP PO SCH (08:23)
[2021-06-25] MEDS: Clopidogrel Bisulfate 75 MG TAB PO SCH (08:23)
[2021-06-25] MEDS: Carbidopa/Levodopa 25-100 mg Tablet PO SCH ×4 (08:23→20:20)
[2021-06-25] MEDS: Furosemide 40 MG TAB PO SCH (08:23)
[2021-06-25] MEDS: Pramipexole Di-HCl 0.25 MG TAB PO SCH ×2 (08:23→20:19)
[2021-06-25] MEDS: Famotidine 20 MG TAB PO SCH ×2 (08:23→20:20)
[2021-06-25] MEDS: Aspirin Chewable 81 MG TAB PO SCH (08:23)
[2021-06-25] MEDS: Pantoprazole 40 MG GRANULES PACKET PO SCH ×2 (08:24→20:20)
[2021-06-25] MEDS: Polyethylene Glycol 3350 17 GM Packet PO SCH ×2 (08:24→20:20)
[2021-06-25] MEDS: [UNRECOGNIZED DRUG - OTHER] PO SCH (08:24)
[2021-06-25] MEDS: CYANOCOBALAMIN 50 MCG PO SCH (08:26)
[2021-06-25] MEDS: Atorvastatin Calcium 40 MG TAB PO SCH (20:20)
[2021-06-25] MEDS: Finasteride 5 MG TAB PO SCH (20:20)
[2021-06-25] MEDS: Escitalopram Oxalate 10 mg Tablet PO SCH (20:20)
[2021-06-26] MEDS: Aspirin Chewable 81 MG TAB PO SCH (09:02)
[2021-06-26] MEDS: Carbidopa/Levodopa 25-100 mg Tablet PO SCH ×4 (09:03→20:49)
[2021-06-26] MEDS: Clopidogrel Bisulfate 75 MG TAB PO SCH (09:03)
[2021-06-26] MEDS: Ferrous Sulfate 325 MG TAB PO SCH (09:04)
[2021-06-26] MEDS: Famotidine 20 MG TAB PO SCH ×2 (09:04→20:49)
[2021-06-26] MEDS: Pantoprazole 40 MG GRANULES PACKET PO SCH ×2 (09:05→20:49)
[2021-06-26] MEDS: Pramipexole Di-HCl 0.25 MG TAB PO SCH ×2 (09:06→20:49)
[2021-06-26] MEDS: Saccharomyces boulardii 250 MG CAP PO SCH (09:07)
[2021-06-26] MEDS: Furosemide 40 MG TAB PO SCH (14:02)
[2021-06-26] MEDS: [UNRECOGNIZED DRUG - OTHER] PO SCH (14:03)
[2021-06-26] MEDS: CYANOCOBALAMIN 50 MCG PO SCH (14:04)
[2021-06-26] MEDS: Polyethylene Glycol 3350 17 GM Packet PO SCH ×2 (14:06→20:49)
[2021-06-26] MEDS: Atorvastatin Calcium 40 MG TAB PO SCH (20:49)
[2021-06-26] MEDS: Finasteride 5 MG TAB PO SCH (20:49)
[2021-06-26] MEDS: Escitalopram Oxalate 10 mg Tablet PO SCH (20:49)
[2021-06-27] MEDS: Aspirin Chewable 81 MG TAB PO SCH (08:32)
[2021-06-27] MEDS: Clopidogrel Bisulfate 75 MG TAB PO SCH (08:32)
[2021-06-27] MEDS: [UNRECOGNIZED DRUG - OTHER] PO SCH (08:32)
[2021-06-27] MEDS: Carbidopa/Levodopa 25-100 mg Tablet PO SCH ×4 (08:32→20:26)
[2021-06-27] MEDS: Furosemide 40 MG TAB PO SCH (08:32)
[2021-06-27] MEDS: CYANOCOBALAMIN 50 MCG PO SCH (08:33)
[2021-06-27] MEDS: Pantoprazole 40 MG GRANULES PACKET PO SCH (08:33)
[2021-06-27] MEDS: Famotidine 20 MG TAB PO SCH ×2 (08:33→20:26)
[2021-06-27] MEDS: Saccharomyces boulardii 250 MG CAP PO SCH (08:34)
[2021-06-27] MEDS: Polyethylene Glycol 3350 17 GM Packet PO SCH ×2 (08:34→20:27)
[2021-06-27] MEDS: Pramipexole Di-HCl 0.25 MG TAB PO SCH ×2 (08:34→20:26)
[2021-06-27] MEDS: Escitalopram Oxalate 10 mg Tablet PO SCH (20:26)
[2021-06-27] MEDS: Atorvastatin Calcium 40 MG TAB PO SCH (20:26)
[2021-06-27] MEDS: Finasteride 5 MG TAB PO SCH (20:27)
[2021-06-28 05:23] LABS: #Basophils 0.1 thou/uL (0.0-0.2); #Eosinphils 0.2 thou/uL (0.0-0.7); #Lymphocytes 1.4 thou/uL (1.20-3.40); #Monocytes 1.1 thou/uL (0.11-0.59); #Neutrophils 5.2 thou/uL (1.40-6.50); %Basophils 1.3 % (0.0-1.0); %Eosinophils 2.6 % (0.0-10.0); %Lymphocytes 17.1 % (21.0-51.0); %Monocytes 13.8 % (0.0-10.0); %Neutrophils 65.2 % (42.0-75.0); Hemoglobin 9.3 g/dL (14.0-18.0); Mean Corpuscular HGB CONC 30.9 g/dL (32.0-36.0); Mean Corpuscular Volume 93.8 fL (78.0-98.0); Mean Platelet Volume 6.6 fL (7.4-10.4); Platelet Count 357 thou/uL (130-400); Red Blood Cell (RBC) Count 3.21 mill/uL (4.70-6.10)
[2021-06-28 05:35] LABS: Anion Gap 13 mmol/L (10-20); BUN (Urea Nitrogen) 7 mg/dL (8.4-25.7); Calc. Creatinine Clearance 85 mL/min (70-130); Carbon Dioxide 35 mmol/L (23-31); Chloride 91 mmol/L (98-107); Glucose 98 mg/dL (83-110); Potassium 4.5 mmol/L (3.5-5.1); Sodium 134 mmol/L (136-145)
[2021-06-28] MEDS: Polyethylene Glycol 3350 17 GM Packet PO SCH ×2 (08:18→20:39)
[2021-06-28] MEDS: Carbidopa/Levodopa 25-100 mg Tablet PO SCH ×4 (08:20→20:39)
[2021-06-28] MEDS: Furosemide 40 MG TAB PO SCH (08:20)
[2021-06-28] MEDS: Pramipexole Di-HCl 0.25 MG TAB PO SCH ×2 (08:20→20:40)
[2021-06-28] MEDS: Aspirin Chewable 81 MG TAB PO SCH (08:20)
[2021-06-28] MEDS: Ferrous Sulfate 325 MG TAB PO SCH (08:20)
[2021-06-28] MEDS: Clopidogrel Bisulfate 75 MG TAB PO SCH (08:21)
[2021-06-28] MEDS: [UNRECOGNIZED DRUG - OTHER] PO SCH (08:21)
[2021-06-28] MEDS: Saccharomyces boulardii 250 MG CAP PO SCH (08:21)
[2021-06-28] MEDS: Famotidine 20 MG TAB PO SCH ×2 (08:21→20:40)
[2021-06-28] MEDS: CYANOCOBALAMIN 50 MCG PO SCH (08:21)
[2021-06-28] MEDS: Furosemide 20 MG TAB PO SCH (10:47)
[2021-06-28] MEDS: Escitalopram Oxalate 10 mg Tablet PO SCH (20:39)
[2021-06-28] MEDS: Finasteride 5 MG TAB PO SCH (20:40)
[2021-06-28] MEDS: Atorvastatin Calcium 40 MG TAB PO SCH (20:40)
[2021-06-28 23:29] LABS: SARS-CoV-2 PCR by NAA Not Detected (NotDetected)
[2021-06-29] MEDS: Furosemide 20 MG TAB PO SCH (08:22)
[2021-06-29] MEDS: Carbidopa/Levodopa 25-100 mg Tablet PO SCH ×4 (08:22→20:34)
[2021-06-29] MEDS: Aspirin Chewable 81 MG TAB PO SCH (08:23)
[2021-06-29] MEDS: Polyethylene Glycol 3350 17 GM Packet PO SCH ×2 (08:23→20:34)
[2021-06-29] MEDS: Clopidogrel Bisulfate 75 MG TAB PO SCH (08:23)
[2021-06-29] MEDS: Saccharomyces boulardii 250 MG CAP PO SCH (08:23)
[2021-06-29] MEDS: Famotidine 20 MG TAB PO SCH ×2 (08:23→20:34)
[2021-06-29] MEDS: Pramipexole Di-HCl 0.25 MG TAB PO SCH ×2 (08:23→20:34)
[2021-06-29] MEDS: CYANOCOBALAMIN 50 MCG PO SCH (08:25)
[2021-06-29] MEDS: [UNRECOGNIZED DRUG - OTHER] PO SCH (08:25)
[2021-06-29] MEDS: Finasteride 5 MG TAB PO SCH (20:34)
[2021-06-29] MEDS: Escitalopram Oxalate 10 mg Tablet PO SCH (20:34)
[2021-06-29] MEDS: Atorvastatin Calcium 40 MG TAB PO SCH (20:34)
[2021-06-30] MEDS: Pramipexole Di-HCl 0.25 MG TAB PO SCH ×2 (08:45→20:47)
[2021-06-30] MEDS: Saccharomyces boulardii 250 MG CAP PO SCH (08:45)
[2021-06-30] MEDS: Ferrous Sulfate 325 MG TAB PO SCH (08:45)
[2021-06-30] MEDS: Polyethylene Glycol 3350 17 GM Packet PO SCH ×2 (08:45→20:47)
[2021-06-30] MEDS: Famotidine 20 MG TAB PO SCH ×2 (08:45→20:47)
[2021-06-30] MEDS: Furosemide 20 MG TAB PO SCH (08:46)
[2021-06-30] MEDS: Aspirin Chewable 81 MG TAB PO SCH (08:46)
[2021-06-30] MEDS: Carbidopa/Levodopa 25-100 mg Tablet PO SCH ×4 (08:46→20:47)
[2021-06-30] MEDS: Clopidogrel Bisulfate 75 MG TAB PO SCH (08:46)
[2021-06-30] MEDS: [UNRECOGNIZED DRUG - OTHER] PO SCH (08:47)
[2021-06-30] MEDS: CYANOCOBALAMIN 50 MCG PO SCH (08:47)
[2021-06-30] MEDS: Finasteride 5 MG TAB PO SCH (20:47)
[2021-06-30] MEDS: Escitalopram Oxalate 10 mg Tablet PO SCH (20:48)
[2021-06-30] MEDS: Atorvastatin Calcium 40 MG TAB PO SCH (20:48)
[2021-07-01 06:49] LABS: #Basophils 0.1 thou/uL (0.0-0.2); #Eosinphils 0.1 thou/uL (0.0-0.7); #Monocytes 1.1 thou/uL (0.11-0.59); #Neutrophils 11.2 thou/uL (1.40-6.50); %Basophils 0.4 % (0.0-1.0); %Lymphocytes 7.3 % (21.0-51.0); %Monocytes 8.4 % (0.0-10.0); Hemoglobin 9.8 g/dL (14.0-18.0); Mean Corpuscular HGB CONC 30.5 g/dL (32.0-36.0); Mean Corpuscular Hemoglobin 28.5 pg (27.0-31.0); Mean Corpuscular Volume 93.3 fL (78.0-98.0); Mean Platelet Volume 7.2 fL (7.4-10.4); Platelet Count 426 thou/uL (130-400); RBC Distribution Width 14.8 % (11.5-14.5); Red Blood Cell (RBC) Count 3.44 mill/uL (4.70-6.10); White Blood Cell (WBC) Count 13.4 thou/uL (4.8-10.8)
[2021-07-01 07:04] LABS: Anion Gap 15 mmol/L (10-20); BUN (Urea Nitrogen) 6 mg/dL (8.4-25.7); Calc. Creatinine Clearance 86 mL/min (70-130); Calcium 8.6 mg/dL (7.8-10.44); Carbon Dioxide 29 mmol/L (23-31); Chloride 93 mmol/L (98-107); Glucose 99 mg/dL (83-110); Sodium 133 mmol/L (136-145)
[2021-07-01] MEDS: Acetaminophen 325 MG TAB PO PRN ×2 (08:13→17:10)
[2021-07-01] MEDS: Famotidine 20 MG TAB PO SCH ×2 (08:13→21:25)
[2021-07-01] MEDS: Polyethylene Glycol 3350 17 GM Packet PO SCH ×2 (08:13→21:25)
[2021-07-01] MEDS: Clopidogrel Bisulfate 75 MG TAB PO SCH (08:13)
[2021-07-01] MEDS: Saccharomyces boulardii 250 MG CAP PO SCH (08:14)
[2021-07-01] MEDS: Furosemide 20 MG TAB PO SCH (08:14)
[2021-07-01] MEDS: Carbidopa/Levodopa 25-100 mg Tablet PO SCH ×4 (08:14→21:25)
[2021-07-01] MEDS: Aspirin Chewable 81 MG TAB PO SCH (08:14)
[2021-07-01] MEDS: Pramipexole Di-HCl 0.25 MG TAB PO SCH ×2 (08:14→21:24)
[2021-07-01] MEDS: [UNRECOGNIZED DRUG - OTHER] PO SCH (08:15)
[2021-07-01] MEDS: CYANOCOBALAMIN 50 MCG PO SCH (08:15)
[2021-07-01] MEDS: Finasteride 5 MG TAB PO SCH (21:25)
[2021-07-01] MEDS: Escitalopram Oxalate 10 mg Tablet PO SCH (21:25)
[2021-07-01] MEDS: Atorvastatin Calcium 40 MG TAB PO SCH (21:25)
[2021-07-02] MEDS: Pramipexole Di-HCl 0.25 MG TAB PO SCH ×2 (08:04→20:13)
[2021-07-02] MEDS: Clopidogrel Bisulfate 75 MG TAB PO SCH (08:04)
[2021-07-02] MEDS: Polyethylene Glycol 3350 17 GM Packet PO SCH ×2 (08:04→20:13)
[2021-07-02] MEDS: Saccharomyces boulardii 250 MG CAP PO SCH (08:04)
[2021-07-02] MEDS: Aspirin Chewable 81 MG TAB PO SCH (08:04)
[2021-07-02] MEDS: Carbidopa/Levodopa 25-100 mg Tablet PO SCH ×4 (08:05→20:14)
[2021-07-02] MEDS: Furosemide 20 MG TAB PO SCH (08:05)
[2021-07-02] MEDS: [UNRECOGNIZED DRUG - OTHER] PO SCH (08:05)
[2021-07-02] MEDS: Ferrous Sulfate 325 MG TAB PO SCH (08:05)
[2021-07-02] MEDS: Famotidine 20 MG TAB PO SCH ×2 (08:05→20:14)
[2021-07-02] MEDS: CYANOCOBALAMIN 50 MCG PO SCH (08:06)
[2021-07-02] MEDS: Acetaminophen 325 MG TAB PO PRN ×2 (08:09→16:56)
[2021-07-02] MEDS: Atorvastatin Calcium 40 MG TAB PO SCH (20:14)
[2021-07-02] MEDS: Finasteride 5 MG TAB PO SCH (20:14)
[2021-07-02] MEDS: Escitalopram Oxalate 10 mg Tablet PO SCH (20:14)
[2021-07-03 06:44] LABS: #Eosinphils 0.2 thou/uL (0.0-0.7); #Monocytes 1.3 thou/uL (0.11-0.59); #Neutrophils 8.4 thou/uL (1.40-6.50); %Basophils 0.4 % (0.0-1.0); %Lymphocytes 9.4 % (21.0-51.0); %Monocytes 11.9 % (0.0-10.0); %Neutrophils 76.3 % (42.0-75.0); Mean Corpuscular HGB CONC 30.1 g/dL (32.0-36.0); Mean Corpuscular Hemoglobin 28.1 pg (27.0-31.0); Mean Corpuscular Volume 93.4 fL (78.0-98.0); Mean Platelet Volume 7.5 fL (7.4-10.4); Platelet Count 387 thou/uL (130-400); RBC Distribution Width 14.6 % (11.5-14.5)
[2021-07-03] MEDS: Pramipexole Di-HCl 0.25 MG TAB PO SCH ×2 (08:29→20:22)
[2021-07-03] MEDS: Saccharomyces boulardii 250 MG CAP PO SCH (08:29)
[2021-07-03] MEDS: Furosemide 20 MG TAB PO SCH (08:29)
[2021-07-03] MEDS: Carbidopa/Levodopa 25-100 mg Tablet PO SCH ×4 (08:30→20:25)
[2021-07-03] MEDS: Famotidine 20 MG TAB PO SCH ×2 (08:30→20:23)
[2021-07-03] MEDS: Sodium Chloride 0.65% Nasal 44 ML BOT EA NARE SCH ×3 (08:30→20:21)
[2021-07-03] MEDS: Aspirin Chewable 81 MG TAB PO SCH (08:30)
[2021-07-03] MEDS: guaiFENesin ER 600 MG TAB PO SCH ×2 (08:30→20:23)
[2021-07-03] MEDS: Clopidogrel Bisulfate 75 MG TAB PO SCH (08:30)
[2021-07-03] MEDS: CYANOCOBALAMIN 50 MCG PO SCH (08:31)
[2021-07-03] MEDS: Polyethylene Glycol 3350 17 GM Packet PO SCH ×2 (08:31→20:25)
[2021-07-03] MEDS: [UNRECOGNIZED DRUG - OTHER] PO SCH (09:17)
[2021-07-03] MEDS: Atorvastatin Calcium 40 MG TAB PO SCH (20:23)
[2021-07-03] MEDS: Finasteride 5 MG TAB PO SCH (20:23)
[2021-07-03] MEDS: Escitalopram Oxalate 10 mg Tablet PO SCH (20:23)
[2021-07-04] MEDS ORDERED: EPINEPHrine 1 MG/10 ML Abboject SYRINGE ONE (09:00)
[2021-07-04] MEDS ORDERED: Sodium Bicarb 50 MEQ/50 ML Abboject 8.4% SYRINGE ONE (09:00)
[2021-07-04] MEDS: Sodium Chloride 0.65% Nasal 44 ML BOT EA NARE SCH ×3 (09:02→20:23)
[2021-07-04] MEDS: Carbidopa/Levodopa 25-100 mg Tablet PO SCH ×4 (09:03→20:23)
[2021-07-04] MEDS: Ferrous Sulfate 325 MG TAB PO SCH (09:03)
[2021-07-04] MEDS: Furosemide 20 MG TAB PO SCH (09:03)
[2021-07-04] MEDS: Aspirin Chewable 81 MG TAB PO SCH (09:03)
[2021-07-04] MEDS: guaiFENesin ER 600 MG TAB PO SCH ×2 (09:03→20:21)
[2021-07-04] MEDS: Saccharomyces boulardii 250 MG CAP PO SCH (09:03)
[2021-07-04] MEDS: Pramipexole Di-HCl 0.25 MG TAB PO SCH ×2 (09:03→20:20)
[2021-07-04] MEDS: Famotidine 20 MG TAB PO SCH ×2 (09:03→20:20)
[2021-07-04] MEDS: Clopidogrel Bisulfate 75 MG TAB PO SCH (09:03)
[2021-07-04] MEDS: CYANOCOBALAMIN 50 MCG PO SCH (09:04)
[2021-07-04] MEDS: [UNRECOGNIZED DRUG - OTHER] PO SCH (09:04)
[2021-07-04] MEDS: Polyethylene Glycol 3350 17 GM Packet PO SCH ×2 (09:04→20:23)
[2021-07-04] MEDS: Escitalopram Oxalate 10 mg Tablet PO SCH (20:20)
[2021-07-04] MEDS: Finasteride 5 MG TAB PO SCH (20:21)
[2021-07-04] MEDS: Atorvastatin Calcium 40 MG TAB PO SCH (20:22)
[2021-07-05 03:29] VITALS: BMI 23.2
[2021-07-05] MEDS: Polyethylene Glycol 3350 17 GM Packet PO SCH ×2 (08:15→20:19)
[2021-07-05] MEDS: Saccharomyces boulardii 250 MG CAP PO SCH (08:15)
[2021-07-05] MEDS: Famotidine 20 MG TAB PO SCH ×2 (08:15→20:21)
[2021-07-05] MEDS: Clopidogrel Bisulfate 75 MG TAB PO SCH (08:15)
[2021-07-05] MEDS: Furosemide 20 MG TAB PO SCH (08:15)
[2021-07-05] MEDS: Pramipexole Di-HCl 0.25 MG TAB PO SCH ×2 (08:15→20:20)
[2021-07-05] MEDS: guaiFENesin ER 600 MG TAB PO SCH ×2 (08:15→20:21)
[2021-07-05] MEDS: CYANOCOBALAMIN 50 MCG PO SCH (08:16)
[2021-07-05] MEDS: Carbidopa/Levodopa 25-100 mg Tablet PO SCH ×4 (08:16→20:20)
[2021-07-05] MEDS: Sodium Chloride 0.65% Nasal 44 ML BOT EA NARE SCH ×3 (08:16→20:20)
[2021-07-05] MEDS: Aspirin Chewable 81 MG TAB PO SCH (08:16)
[2021-07-05] MEDS: [UNRECOGNIZED DRUG - OTHER] PO SCH (08:17)
[2021-07-05] MEDS ORDERED: Lisinopril 10 MG TAB PO SCH (14:15)
[2021-07-05 17:21] LABS: SARS-CoV-2 PCR by NAA Not Detected (NotDetected)
[2021-07-05 19:16] VITALS: BP 142/81; TEMP 97.9
[2021-07-05] MEDS: Escitalopram Oxalate 10 mg Tablet PO SCH (20:21)
[2021-07-05] MEDS: Atorvastatin Calcium 40 MG TAB PO SCH (20:21)
[2021-07-05] MEDS: Finasteride 5 MG TAB PO SCH (20:27)
[2021-07-06 06:11] LABS: INR-International Normal Ratio 2.1; Prothrombin Time 23.9 sec (12.0-14.7)
[2021-07-06 06:13] LABS: PTT 94.6 sec (22.9-36.1)
[2021-07-06 06:19] LABS: Hemoglobin 8.3 g/dL (14.0-18.0); Mean Corpuscular HGB CONC 28.4 g/dL (32.0-36.0); Mean Corpuscular Hemoglobin 28.3 pg (27.0-31.0); Mean Corpuscular Volume 99.6 fL (78.0-98.0); Mean Platelet Volume 6.3 fL (7.4-10.4); Platelet Count 208 thou/uL (130-400); RBC Distribution Width 15.5 % (11.5-14.5); Red Blood Cell (RBC) Count 2.94 mill/uL (4.70-6.10); White Blood Cell (WBC) Count 13.6 thou/uL (4.8-10.8)
[2021-07-06 06:20] LABS: ALT (SGPT) 89 U/L (8-55); AST (SGOT) 1751 U/L (5-34); Albumin 2.9 g/dL (3.4-4.8); Alkaline Phosphatase 154 U/L (40-110); Anion Gap 26 mmol/L (10-20); Anisocytosis SLIGHT = 6-15 cells (100X) (0-5/hpf); BUN (Urea Nitrogen) 9 mg/dL (8.4-25.7); Bilirubin, Total 0.5 mg/dL (0.2-1.2); Burr Cells MODERATE= 6-15 cells (100X) (0-1/hpf); Calc. Creatinine Clearance 74 mL/min (70-130); Calcium 8.9 mg/dL (7.8-10.44); Carbon Dioxide 23 mmol/L (23-31); Chloride 91 mmol/L (98-107); Eosinophils 1 % (0-10); Globulin 2.6 g/dL (2.4-3.5); Glucose 105 mg/dL (83-110); Hypochromia SLIGHT = 6-15 cells (100X) (0-5/hpf); Lymphocytes 34 % (21-51); MDiff Complete? YES; Monocytes 6 % (0-10); Neutrophil 58 % (42-75); Nucleated RBC 2 % (0); Platelet Morphology Comment Appears Adequate; Protein, Total 5.5 g/dL (5.8-8.1); Reactive Lymphocytes 1 % (0-10); Sodium 132 mmol/L (136-145)
[2021-07-06 06:21] LABS: Potassium 7.6 mmol/L (3.5-5.1)
[2021-07-06 06:53] LABS: CKMB 11.4 ng/mL (0-6.6)
[2021-07-06] MEDS ORDERED: Lisinopril 10 MG TAB PO SCH (09:00)
== END 2021-07-06 08:24 | disposition expired | DRG 947 ==
LOC: UNDOADMIN 18:38 → EDBD 18:38 → NAV ACUTE 18:38
PROVIDERS: ADMIT Family Medicine; ATTEND Family Medicine
DX: R53.81 Other malaise (principal); J96.91 Respiratory failure, unspecified with hypoxia; I50.32 Chronic diastolic (congestive) heart failure; K81.0 Acute cholecystitis; E87.3 Alkalosis; E87.1 Hypo-osmolality and hyponatremia; G20 Parkinson's disease; E78.5 Hyperlipidemia, unspecified; I48.91 Unspecified atrial fibrillation; N40.0 Benign prostatic hyperplasia without lower urinary tract symptoms; G25.81 Restless legs syndrome; M19.90 Unspecified osteoarthritis, unspecified site; F02.80 Dementia in other diseases classified elsewhere, unspecified severity, without behavioral disturbance, psychotic disturbance, mood disturbance, and anxiety; I11.0 Hypertensive heart disease with heart failure; I87.2 Venous insufficiency (chronic) (peripheral); T50.1X5A Adverse effect of loop [high-ceiling] diuretics, initial encounter; F41.9 Anxiety disorder, unspecified; Z96.612 Presence of left artificial shoulder joint; F32.9 Major depressive disorder, single episode, unspecified; R13.10 Dysphagia, unspecified; D63.8 Anemia in other chronic diseases classified elsewhere; Z98.42 Cataract extraction status, left eye; Z98.41 Cataract extraction status, right eye; Z87.891 Personal history of nicotine dependence; Z79.82 Long term (current) use of aspirin; Z79.899 Other long term (current) drug therapy
CPT/HCPCS: 36415; 36416; 70450; 71045; 74177; 80048; 80053; 80202; 81003; 81015; 82553; 84484; 85025; 85610; 85730; 94640; J0171; J2543; J3370; J3490; J7050; J7611; Q9967; U0002; U0003; U0005